=== PATIENT | male | born 1995 | race Native Hawaiian/Other Pacific Islander ===

== ENCOUNTER 2025-04-30 21:05 | Emergency (ER) | payer MEDICAID, SELFPAY ==
--- OUTSIDE RECORDS SUMMARY | 2025-04-30 21:07 | XMS_ITS | Clinical Summary ---
Author Organization [employer] [facility] Address [address] [place] [id number] Care Team Providers Care Residential Advisor Name Role Phone Pcp, No Primary Care Provider Unavailabl e Allergies No known active allergies Medications naproxen (ALEVE) 220 mg tabletIndications: Toe injury, left, initial encounter,Cellulit is of skin Take 1 tablet by mouth every 12 hours. 30 tablet 1 Active testosterone (ANDROGEL) 20.25 mg/1.25 gram (1.62 %) glpm transdermal gelIndications:Hyp ogonadotropic hypogonadism (HC) Apply 2 pumps on dry, clean, hairless skin every morning. To clean, dry, intact skin of the shoulders and upper arms. Do NOT apply to any other parts of the body. 6 Bottle 3 1 Active levothyroxine (SYNTHROID) 50 mcg tabletIndications: Central hypothyroidism Take 1 tablet by mouth once daily. 90 tablet 3 1 Active predniSONE (DELTASONE) 2.5 mg tabletIndications: ACTH deficiency (HC) Take 1 tablet by mouth once daily with a meal. 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 11/20/2020 Depressive disorder, not elsewhere classified Resolved Problems Problem Noted Date Diagnosed Date Resolved Date Unspecified asthma(493.90) 04/24/2007 0 12/17/2015 Immunizations Immunization Administration Dates Next Due DTaP 06/21/2002, 8,09/08/1997,05/22/1997, 01/18/1997 HIB HbOC (HibTITER) 01/31/1998 HIB-HepB (Comvax) 05/22/1997,01/18/1997,11/14/18 97 Hepatitis A (Peds) 07/08/2007 Inactivated Polio Vaccine 06/21/2002,01/31/1998, 09/08/1997,05/22/1997 Influenza, IIV3 (Age >=3 years) 08/29/2006 MMR 06/21/2002,01/31/1998 Tdap 07/31/2008 Varicella Vaccine 07/08/2007 Family History Medical History Relation Name Comments Other Brother patient's twin brother Psychiatric illness Brother depressi on Diabetes Father Hypertension Mother Diabetes Sister Relation Name Status Comments Brother Father Mother Sister Social History Tobacco Use Types Packs/Day Years Used Date Smoking Tobacco: Passive Smo ke Exposure - Never Smoker Smokeless Tobacco: Never Tobacco Cessation:Counseling Given: Yes Comments:Father smokes but away from the children Alcohol Use Standard Drinks/Week Comments Not Currently 0 (1 standard drink = 0.6 oz pur e alcohol) PHQ-2 Answer Date Recorded PHQ-2 TOTAL SCORE 4 09/26/2020 Social Connections Answer Date Recorded Frequency of Communication with Friends and Fami ly Not on file 10/26/2021 Financial Resource Strain Answer Date R ecorded Difficulty of Paying Living Expenses Not on file 10/26/2021 Difficulty of Paying Living Expenses Not on file 10/26/2021 Sex and Gender Information Value Date Recorded Sex Assigned at Not on file Legal Sex Male 5:27 AM [employer] Gender Identity Not on file Sexual Orientation Not on file Obstetrics History Last Filed Vital Signs Vital Sign Reading Time Taken Comments Blood Pressure 93/61 11/16/2020 4:08 PM [employer] Pulse 74 11/16/2020 4:08 PM [employer] Temperature 36.9 C (98.4 F) 11/16/2020 4:08 PM [employer] Respiratory Rate - - Oxygen Saturation 100% 11/16/2020 4:08 PM [employer] Inhaled Oxygen Concentration - - Weight 47.6 kg (105 lb) 11/09/2020 8:51 AM [employer]ING MACH[employer] Height 154 cm (5' 0.63) 03/26/2016 1:49 PM CDT Body Mass Index - - Plan of Treatment Health Maintenance Due Date Last Done Comments HIV for age 15-65 2011 Hepatitis C screening for ag e 18-79 2014 BMI (ht and wt on same day) for age 18+ 03/26/2017 03/26/2016, 03/19/2016, 12/17/2015 Tetanus booster 07/31/2018 07/31/2008 Depression screening for age 12+ 09/27/2021 09/27/2020, 09/26/2020, 12/17/2015 COVID-19 vaccine series (2023- season) 2024 Influenza Vaccine (#1) 2025 08/29/2006 Hepatitis B series for 19+ Completed 05/22, 01/18/1997, 1996 Pneumococcal series for age 6-49 Aged Out No longer eligible b ased on patient's age to complete this topic Insurance [facility] [place] Care Teams Residential Advisor Relationship Specialty Start Date End Date Pcp, No . PCP - General 12/11/15
[2025-04-30 21:15] VITALS: BP 112/89; PULSE 71; RESP 20; TEMP 36.7; O2SAT 96; BMI 19.4
--- NOTE | 2025-04-30 21:24 | ED_ITS ---
HPI - Dental/Oral General Date Seen: 04/30/25 Chief complaint: Dental/Oral/Mouth Injury/Pain Stated complaint: Left side tooth pain Time Seen by Provider: 04/30/25 21:08 Source: patient Mode of arrival: ambulatory Limitations: no limitations History of Present Illness HPI Narrative: Patient is the 29-year-old gentleman, who presents here with left tooth pain, his lower area, he bit down while eating today and said he had increasing pain, took some Excedrin before coming in, saw her to gentle in November, and told this teeth need to come out, but did not get this done. MD Complaint: tooth pain Teeth map: 2 1. Carious tooth. Pain on palpation, no gingival, or abscess. Floor of the mouth quiet, no significant lymphadenopathy. No trismus Severity: moderate Relieving factors: NSAIDs Exacerbating factors: chewing and cold Context: history of dental caries, trauma (mechanism) and poor dental care Treatment prior to arrival: oral analgesic Related Data Home Medications ?Medication ?Instructions ?Recorded ?Confirmed [id number] 250 2 tab PO Q4-6H PRN 04/30/25 04/30/25 mg-250 mg-65 mg tablet (Excedrin Extra Strength) Allergies Allergy/AdvReac Type Severity Reaction Status Date / Time No Known Drug Allergies Allergy Verified 04/30/25 21:19 Review of Systems 2 Status of ROS: Reports: 10 or more systems reviewed and unremarkable except as noted in History and below [facility] Medical History (Updated 04/30/25 @ 21:24 by Gabe Saez MD) Depressive disorder ?F32.A - Depression, unspecified (ICD-10) Asthma ?J45.909 - Unspecified asthma, uncomplicated (ICD-10) GHD (growth hormone deficiency) ?E23.0 - Hypopituitarism (ICD-10) Hypogonadotropic hypogonadism ?E23.0 - Hypopituitarism (ICD-10) ACTH deficiency ?E23.0 - Hypopituitarism (ICD-10) Central hypothyroidism ?E03.8 - Other specified hypothyroidism (ICD-10) Pituitary stalk interruption syndrome ?E23.6 - Other disorders of pituitary gland (ICD-10) Exam 2 Narrative: Exam Narrative: Patient is the 29-year-old gentleman who looks significantly younger than his stated age, no apparent distress mouth opening normal, 3 finger breaths, with no trismus, palpable pain over his left lower molar. No evidence of any redness, no abscess formation, large carious tooth. No lymphadenopathy no meningismus noted. Const: Vital Signs, click to edit/add: Vital Signs - 24 hr 04/30/25 21:15 Temperature 98.1 F Pulse Rate [Right Pulse Oximeter] 71 Respiratory Rate 20 Blood Pressure [Le ft Upper Arm] 112/89 Pulse Oximetry 96 Oxygen Delivery Me thod Room Air Documenting provider has reviewed patient's vital signs: yes Course Course ED Course: Amoxicillin 500 mg p.o. t.i.d. for 7 days is prescribed, along with [place], after reviewing the [employer], he has no outstanding prescriptions. I went over the risks benefits and side effects this including addiction, not to be used with alcohol or driving. [place], 5/325, 1-2 tablets q.6 to q.6h. Times 10 tablets total Vital Signs Vital signs: Initial Vital Signs Temperature 98.1 F 04/30/25 21:15 Temperature Source Temporal Artery Scan 04/30/25 21:15 Pulse Rate 71 04/30/25 21:15 Respiratory Rate 20 04/30/25 21:15 Blood Pressure 112/89 04/30/25 21:15 Blood Pressure Mean 96 04/30/25 21:15 Blood Pressure Position Sitting 04/30/25 21:15 Pulse Oximetry 96 04/30/25 21:15 Oxygen Delivery Method Room Air 04/30/25 21:15 Vital Signs Temperature 98.1 F 04/30/25 21:15 Pulse Rate 71 04/30/25 21:15 Respiratory Rate 20 04/30/25 21:15 Blood Pressure 112/89 04/30/25 21:15 Pulse Oximetry 96 04/30/25 21:15 Oxygen Delivery Method Room Air 04/30/25 21:15 Temperature 98.1 F 04/30/25 21:15 Pulse Rate 71 04/30/25 21:15 Respiratory Rate 20 04/30/25 21:15 Blood Pressure 112/89 04/30/25 21:15 Pulse Oximetry 96 04/30/25 21:15 Oxygen Delivery Method Room Air 04/30/25 21:15 Medications Administered Medications: Generic Name Dose Route Start Last Admin Trade Name Freq PRN Reason Stop Dose Admin Ketorolac Tromethamine 30 mg 04/30/25 21:22 04/30/25 21:26 Ketorolac 30 Mg/Ml Inj IM 04/30/25 21:23 30 mg ONCE ONE Administration MDM - Dental/Oral MDM Narrative Medical decision making narrative: I discussed with him we will give him a shot of Toradol, we will also give him some antibiotics and he will need to follow-up with dentistry. Return as face swelling, or other issue. Differential Diagnosis Differential diagnosis: Likely gingival abscess, dental caries, toothache, dental abscess, fracture of tooth and aphthous ulcer Medical Records Attestation: I reviewed the patient's medical records. Medical records narrative: Reviewed the epic chart. Discharge Plan Discharge Clinical Impression: Toothache, Dental caries Patient Disposition: Home w/ Parent or Adult Condition: Stable Instructions: Toothache (ED), Tooth Extraction (DC) Additional Instructions: Home rest, use of Tylenol 1 g p.o. t.i.d., no more ibuprofen for the next 8 hours please, take the antibiotics as directed follow-up with dentistry tomorrow. He will need an extraction or at least a cap on that tooth. Return if fevers chills or swelling of your face, or neck. Activity Level: Light activity Prescriptions: No Action Excedrin Extra Strength 250-250-65 mg tablet 2 tab PO Q4-6H PRN Follow Up/Referrals: Kleber Suh MD [Primary Care Provider, Family Practice] Stand Alone Forms: MyHealth Info Instructions
== END 2025-04-30 21:37 | disposition home or self-care (01) ==
LOC: ED 21:29
PROVIDERS: Emergency Provider Family Medicine
DX: K02.9 Dental caries, unspecified (principal)
CPT/HCPCS: 96372; 99283; J1885